=== PATIENT | female | born 1955 | race African-American/Black ===

== ENCOUNTER 2021-03-06 17:36 | Inpatient (IN) | payer OTHER ==
[2021-03-06 19:42] VITALS: BMI 24.2
[2021-03-06] MEDS ORDERED: NICOTINE POLACRILEX 2 MG GUM BUC PRN (20:51)
[2021-03-06] MEDS ORDERED: MAG HYDROX/AL HYDROX/SIMETH 30 ML UNIT-DOSE CUP PO PRN (20:51)
[2021-03-06] MEDS ORDERED: ONDANSETRON *ODT* 4 MG TABLET SL PRN (20:51)
[2021-03-06] MEDS ORDERED: BISMUTH SUBSALICYLATE 524 MG/30 ML PO PRN (20:51)
[2021-03-06] MEDS ORDERED: MAGNESIUM HYDROX 2400MG/30ML ORAL SUSPENSION 30 ML CUP PO PRN (20:51)
[2021-03-06] MEDS ORDERED: ACETAMINOPHEN 325 MG TABLET (FP) PO PRN ×2 (20:51)
[2021-03-06] MEDS ORDERED: MAGNESIUM CITRATE 300 ML BOTTLE PO PRN (20:51)
[2021-03-06] MEDS ORDERED: MENTHOL/PHENOL 1 EACH UD MM PRN (20:51)
[2021-03-06] MEDS ORDERED: cloNIDine HCL 0.1 MG TABLET PO PRN (20:54)
[2021-03-06] MEDS ORDERED: METHADONE HCL 10 MG TABLET (FOR DETOX USE ONLY) PO ONE (23:45)
[2021-03-06] MEDS ORDERED: METHADONE HCL 10 MG TABLET (FOR DETOX USE ONLY) ONE (23:59)
[2021-03-07] MEDS: THIAMINE HCL 100 MG TABLET (FP) PO SCH ×2 (00:04→22:11)
[2021-03-07] MEDS: MELATONIN 5 MG TABLETS PO SCH ×2 (00:04→22:11)
[2021-03-07] MEDS ORDERED: METHADONE (DETOX) 10 MG, METHADONE (DETOX) 5 MG PO ONE (10:00)
[2021-03-07] MEDS ORDERED: METHADONE HCL 10 MG TABLET (FOR DETOX USE ONLY) PO ONE (10:00)
[2021-03-07] MEDS ORDERED: METHADONE HCL 10 MG TABLET (FOR DETOX USE ONLY) ONE (10:24)
[2021-03-07] MEDS ORDERED: METHADONE HCL 5 MG TABLET (FOR DETOX USE ONLY) ONE (10:24)
[2021-03-07] MEDS: PRENATAL VITAMINS W/ FOLIC ACID TABLET (FP) PO SCH (10:24)
[2021-03-07] MEDS: LISINOPRIL 10 MG TABLET PO SCH (10:25)
[2021-03-07 11:35] LABS: HEMATOCRIT 43.5 % (32.4-45.2); HEMOGLOBIN 13.8 GM/dL (10.7-15.3); MCH 24.7 pg (25.7-33.7); MCHC 31.7 g/dl (32.0-36.0); MEAN CELL VOLUME 77.9 fl (80-96); MEAN PLT VOLUME 8.5 fl (7.5-11.1); PLATELET COUNT 186 K/MM3 (134-434); RBC 5.58 M/mm3 (3.60-5.2); RDW 17.2 % (11.6-15.6); WHITE BLOOD COUNT 12.5 K/mm3 (4.0-10.0)
[2021-03-07 11:41] LABS: ALBUMIN 3.9 g/dl (3.4-5.0); BLOOD UREA NITROGEN 11.9 mg/dL (7-18); CALCIUM 9.8 mg/dL (8.5-10.1)
[2021-03-07 11:44] LABS: CREATININE 0.9 mg/dL (0.55-1.3)
[2021-03-07 11:46] LABS: BILIRUBIN,TOTAL 1.3 mg/dL (0.2-1); TOT PROT 7.1 g/dl (6.4-8.2)
[2021-03-07 12:32] LABS: HIV INTERPRETATION NEGATIVE (NEGATIVE)
[2021-03-08] MEDS ORDERED: METHADONE HCL 10 MG TABLET (FOR DETOX USE ONLY) PO ONE (10:00)
[2021-03-08] MEDS: PRENATAL VITAMINS W/ FOLIC ACID TABLET (FP) PO SCH (10:12)
[2021-03-08] MEDS: LISINOPRIL 10 MG TABLET PO SCH (10:12)
[2021-03-08] MEDS ORDERED: FLU VACCINE (FLULAVAL) PF 60 MCG/0.5 ML SYRINGE 2020-2021 IM ONE (12:00)
[2021-03-08] MEDS: IBUPROFEN 400 MG TABLET (FP) PO PRN (17:57)
[2021-03-08] MEDS: METHOCARBAMOL 500 MG TABLET PO PRN (17:57)
[2021-03-08] MEDS: MELATONIN 5 MG TABLETS PO SCH (22:06)
[2021-03-08] MEDS: THIAMINE HCL 100 MG TABLET (FP) PO SCH (22:06)
[2021-03-09] MEDS: IBUPROFEN 400 MG TABLET (FP) PO PRN ×3 (01:55→17:46)
[2021-03-09] MEDS: METHOCARBAMOL 500 MG TABLET PO PRN ×3 (05:57→17:46)
[2021-03-09] MEDS ORDERED: METHADONE HCL 5 MG TABLET (FOR DETOX USE ONLY) PO ONE (10:00)
[2021-03-09] MEDS ORDERED: METHADONE HCL 10 MG TABLET (FOR DETOX USE ONLY) PO ONE (10:00)
[2021-03-09] MEDS: hydrOXYzine PAMOATE 25 MG CAPSULE (FP) PO PRN ×2 (10:18→22:17)
[2021-03-09] MEDS: LISINOPRIL 10 MG TABLET PO SCH (10:18)
[2021-03-09] MEDS: PRENATAL VITAMINS W/ FOLIC ACID TABLET (FP) PO SCH (10:18)
[2021-03-09] MEDS: MELATONIN 5 MG TABLETS PO SCH (22:17)
[2021-03-09] MEDS: THIAMINE HCL 100 MG TABLET (FP) PO SCH (22:17)
[2021-03-10] MEDS ORDERED: METHADONE HCL 5 MG TABLET (FOR DETOX USE ONLY) PO ONE (05:00)
[2021-03-10] MEDS: METHOCARBAMOL 500 MG TABLET PO PRN (06:38)
[2021-03-10 09:30] VITALS: BP 126/73; PULSE 71; TEMP 96.9
[2021-03-10] MEDS: LISINOPRIL 10 MG TABLET PO SCH (10:44)
[2021-03-10] MEDS: PRENATAL VITAMINS W/ FOLIC ACID TABLET (FP) PO SCH (10:44)
== END 2021-03-10 11:34 | disposition home or self-care (01) | DRG 773 ==
LOC: YASAS 17:36 → Y6N 03-07 00:36
PROVIDERS: ADMIT Allergy & Immunology; ATTEND Allergy & Immunology
PROC: HZ2ZZZZ Detoxification Services for Substance Abuse Treatment (ICD-10-PCS; principal; 2021-03-07)
DX: F11.23 Opioid dependence with withdrawal (principal); F10.10 Alcohol abuse, uncomplicated; F14.20 Cocaine dependence, uncomplicated; F16.20 Hallucinogen dependence, uncomplicated; F12.10 Cannabis abuse, uncomplicated; F19.282 Other psychoactive substance dependence with psychoactive substance-induced sleep disorder; I10 Essential (primary) hypertension; J45.909 Unspecified asthma, uncomplicated; Z86.19 Personal history of other infectious and parasitic diseases
CPT/HCPCS: 36415; 71046-TC-FY; 80053; 85027; 86593; 86780; 87389; C9803; Q0162; U0003; U0005